=== PATIENT | female | born 1950 | race Caucasian/White ===

== ENCOUNTER 2017-12-25 08:31 | Outpatient (CLI) | payer MEDICARE, BC | END 2017-12-25 08:32 | disposition home or self-care (01) | LOC: BICMAMMO 08:31 | PROVIDERS: ATTEND Obstetrics & Gynecology | DX: R92.8 Other abnormal and inconclusive findings on diagnostic imaging of breast (principal); E87.1 Hypo-osmolality and hyponatremia; R92.1 Mammographic calcification found on diagnostic imaging of breast; Z90.710 Acquired absence of both cervix and uterus | CPT/HCPCS: 77066; G0279 ==

== ENCOUNTER 2022-01-31 17:19 | Inpatient (IN) | payer OTHER, MEDICARE, BC ==
[2022-01-31] MEDS ORDERED: Ondansetron PF 4 MG/2 ML Vial IVP PRN (20:06)
[2022-01-31] MEDS ORDERED: hydrALAZINE 20 MG/ML VIAL SLOW IVP PRN (20:06)
[2022-01-31] MEDS ORDERED: Promethazine HCl 25 MG/ML VIAL IM PRN (20:06)
[2022-01-31] MEDS ORDERED: Lorazepam 2 MG/ML VIAL SLOW IVP PRN (20:06)
[2022-01-31] MEDS ORDERED: traMADol HCl 50 MG TAB PO PRN (20:57)
[2022-01-31] MEDS ORDERED: Gabapentin 300 MG CAP PO SCH (21:00)
[2022-01-31] MEDS ORDERED: Morphine 2 MG/ML VIAL SLOW IVP PRN (21:21)
[2022-01-31] MEDS ORDERED: diphenhydrAMINE 12.5 MG/5 ML UDCUP PO PRN (21:22)
[2022-01-31] MEDS: Cyclobenzaprine 10 MG TAB PO PRN (21:27)
[2022-01-31] MEDS: traMADol HCl 50 MG TAB PO SCH (21:27)
[2022-01-31] MEDS: Senokot S 8.6-50 MG TAB PO SCH (21:30)
[2022-01-31] MEDS: Sodium Chloride 0.9% 1,000 ML IV SCH (21:31)
[2022-02-01] MEDS: traMADol HCl 50 MG TAB PO SCH ×4 (04:20→21:50)
[2022-02-01 05:36] LABS: #Eosinphils 0.2 thou/uL (0.0-0.7); #Lymphocytes 2.2 thou/uL (1.20-3.40); #Monocytes 1.1 thou/uL (0.11-0.59); #Neutrophils 7.1 thou/uL (1.40-6.50); %Basophils 0.3 % (0.0-1.0); %Eosinophils 1.4 % (0.0-10.0); %Lymphocytes 21.1 % (21.0-51.0); %Monocytes 10.2 % (0.0-10.0); Hemoglobin 13.5 g/dL (12.0-16.0); Mean Corpuscular HGB CONC 33.2 g/dL (32.0-36.0); Mean Corpuscular Hemoglobin 32.3 pg (27.0-31.0); Mean Corpuscular Volume 97.3 fL (78.0-98.0); Mean Platelet Volume 8.4 fL (7.4-10.4); Platelet Count 192 thou/uL (130-400); RBC Distribution Width 12.4 % (11.5-14.5); Red Blood Cell (RBC) Count 4.17 mill/uL (4.20-5.40); White Blood Cell (WBC) Count 10.6 thou/uL (4.8-10.8)
[2022-02-01 05:59] LABS: Anion Gap 16 mmol/L (10-20); BUN (Urea Nitrogen) 17 mg/dL (9.8-20.1); Calc. Creatinine Clearance 0 mL/min (70-130); Calcium 8.7 mg/dL (7.8-10.44); Carbon Dioxide 19 mmol/L (23-31); Chloride 104 mmol/L (98-107); Estimated GFR 67; Glucose 163 mg/dL (83-110); Magnesium 2.1 mg/dL (1.6-2.6); Phosphorus 3.8 mg/dL (2.3-4.7); Potassium 4.5 mmol/L (3.5-5.1); Sodium 134 mmol/L (136-145)
[2022-02-01] MEDS: Sodium Chloride 0.9% 1,000 ML IV SCH (06:20)
[2022-02-01 06:40] LABS: SARS-CoV-2 NAA Rapid Test Not Detected (NotDetected)
[2022-02-01] MEDS ORDERED: Morphine 2 MG/ML VIAL SLOW IVP PRN (07:34)
[2022-02-01 07:54] VITALS: BMI 27.7
[2022-02-01 08:03] LABS: Bacteria/HPF None Seen HPF (None Seen); Bilirubin Negative (Negative); Blood, Urine Negative (Negative); Clarity Clear (Clear); Glucose, Urine (Dipstick) Greater than 1000 mg/dL (Negative); Ketone, Urine Negative (Negative); Leukocyte Negative Leu/uL (Negative); Nitrite Negative (Negative); Protein, Urine (Dipstick) Negative (Neg-Trace); RBC/HPF None Seen HPF (0-3); Specific Gravity, Urine 1.028 (1.002-1.036); Squamous Epithelial None Seen HPF (0-3); Urobilinogen Normal mg/dL (Less than 2); WBC/HPF 0-3 HPF (0-3); pH, Urine 6.5 (5.0-9.0)
[2022-02-01 08:15] LABS: Urine Culture Reflex No No
[2022-02-01] MEDS ORDERED: Clopidogrel Bisulfate 75 MG TAB PO SCH (09:00)
[2022-02-01] MEDS ORDERED: Famotidine/PF 20 mg/2ml Vial SLOW IVP SCH (09:00)
[2022-02-01] MEDS ORDERED: Escitalopram Oxalate 20 mg Tablet PO SCH (09:00)
[2022-02-01] MEDS ORDERED: Trospium 20 MG TAB PO SCH (09:00)
[2022-02-01] MEDS: Famotidine 20 MG TAB PO SCH ×2 (09:02→21:50)
[2022-02-01] MEDS: Gabapentin 100 MG CAP PO SCH ×3 (09:07→21:50)
[2022-02-01] MEDS: Acetaminophen 500 MG TAB PO SCH ×3 (09:07→21:50)
[2022-02-01] MEDS: Senokot S 8.6-50 MG TAB PO SCH ×2 (09:10→21:50)
[2022-02-01] MEDS: Polyethylene Glycol 3350 17 GM Packet PO SCH (09:10)
[2022-02-01] MEDS ORDERED: Insulin Regular 300 UNITS/3 ML VIAL SC PRN (11:52)
[2022-02-01] MEDS ORDERED: Dextrose 50% Abboject 50 ML SYRINGE SLOW IVP PRN (11:52)
[2022-02-01] MEDS ORDERED: Dextrose 5% in Water 1,000 ML IV PRN (11:52)
[2022-02-01] MEDS ORDERED: Ibuprofen 200 MG TAB PO SCH (14:00)
[2022-02-01] MEDS: Cyclobenzaprine 10 MG TAB PO PRN (16:15)
[2022-02-01] MEDS: Ketorolac Tromethamine 30 MG/ML VIAL IVP SCH ×2 (16:15→23:10)
[2022-02-01] MEDS: Insulin Regular 300 UNITS/3 ML VIAL SC PRN (17:04)
[2022-02-01] MEDS ORDERED: Atorvastatin Calcium 40 MG TAB PO SCH (21:00)
[2022-02-01] MEDS ORDERED: Amlodipine 5 MG TAB PO SCH (21:00)
[2022-02-02] MEDS: traMADol HCl 50 MG TAB PO SCH ×3 (02:37→14:42)
[2022-02-02] MEDS: Acetaminophen 500 MG TAB PO SCH ×3 (02:39→14:42)
[2022-02-02 05:57] LABS: #Eosinphils 0.3 thou/uL (0.0-0.7); #Lymphocytes 2.4 thou/uL (1.20-3.40); #Monocytes 1.2 thou/uL (0.11-0.59); #Neutrophils 6.2 thou/uL (1.40-6.50); %Basophils 0.3 % (0.0-1.0); %Eosinophils 3.2 % (0.0-10.0); %Lymphocytes 23.4 % (21.0-51.0); %Monocytes 11.7 % (0.0-10.0); %Neutrophils 61.3 % (42.0-75.0); Hemoglobin 12.1 g/dL (12.0-16.0); Mean Corpuscular HGB CONC 33.1 g/dL (32.0-36.0); Mean Corpuscular Hemoglobin 32.2 pg (27.0-31.0); Mean Corpuscular Volume 97.2 fL (78.0-98.0); Mean Platelet Volume 8.4 fL (7.4-10.4); Platelet Count 181 thou/uL (130-400); RBC Distribution Width 12.5 % (11.5-14.5); Red Blood Cell (RBC) Count 3.75 mill/uL (4.20-5.40); White Blood Cell (WBC) Count 10.1 thou/uL (4.8-10.8)
[2022-02-02] MEDS ORDERED: Levothyroxine Sodium 112 MCG TAB PO SCH (06:00)
[2022-02-02 06:24] LABS: Anion Gap 14 mmol/L (10-20); BUN (Urea Nitrogen) 20 mg/dL (9.8-20.1); Calc. Creatinine Clearance 53 mL/min (70-130); Carbon Dioxide 23 mmol/L (23-31); Chloride 104 mmol/L (98-107); Potassium 4.8 mmol/L (3.5-5.1); Sodium 136 mmol/L (136-145)
[2022-02-02 06:25] LABS: Calcium 8.8 mg/dL (7.8-10.44); Estimated GFR 44; Glucose 203 mg/dL (83-110); Magnesium 2.2 mg/dL (1.6-2.6); Phosphorus 3.8 mg/dL (2.3-4.7)
[2022-02-02] MEDS: Ketorolac Tromethamine 30 MG/ML VIAL IVP SCH (06:34)
[2022-02-02] MEDS: Insulin Regular 300 UNITS/3 ML VIAL SC PRN ×2 (06:39→12:09)
[2022-02-02] MEDS ORDERED: Sodium Chloride 0.9% 500 ML IV SCH (07:45)
[2022-02-02] MEDS: Famotidine 20 MG TAB PO SCH (08:18)
[2022-02-02] MEDS: Gabapentin 100 MG CAP PO SCH ×2 (08:19→14:42)
[2022-02-02] MEDS ORDERED: PHOS-NAK 1 PKT PACK PO SCH (08:30)
[2022-02-02] MEDS ORDERED: Clopidogrel Bisulfate 75 MG TAB PO SCH (09:00)
[2022-02-02] MEDS: Polyethylene Glycol 3350 17 GM Packet PO SCH (10:08)
[2022-02-02] MEDS: Senokot S 8.6-50 MG TAB PO SCH (10:08)
[2022-02-02 12:50] VITALS: BP 122/70; TEMP 98
== END 2022-02-02 16:00 | DRG 200 ==
LOC: SURG A 19:53 → OBSVTOIN 02-01 17:10
PROVIDERS: ADMIT Physician Assistant Medical; ATTEND Surgery
DX: S27.0XXA Traumatic pneumothorax, initial encounter (principal); S22.41XA Multiple fractures of ribs, right side, initial encounter for closed fracture; N17.9 Acute kidney failure, unspecified; Z23 Encounter for immunization; Z20.822 Contact with and (suspected) exposure to COVID-19; W01.0XXA Fall on same level from slipping, tripping and stumbling without subsequent striking against object, initial encounter; I25.10 Atherosclerotic heart disease of native coronary artery without angina pectoris; F32.A Depression, unspecified; E03.9 Hypothyroidism, unspecified; E78.5 Hyperlipidemia, unspecified; I10 Essential (primary) hypertension; E11.9 Type 2 diabetes mellitus without complications; Z99.3 Dependence on wheelchair; Z95.1 Presence of aortocoronary bypass graft; Z90.49 Acquired absence of other specified parts of digestive tract; Z88.5 Allergy status to narcotic agent; Z88.6 Allergy status to analgesic agent; Z79.4 Long term (current) use of insulin; Z79.890 Hormone replacement therapy; Z79.899 Other long term (current) drug therapy
CPT/HCPCS: 36415; 36416; 71045; 80048; 81001; 83036; 83735; 83880; 84100; 85025; 90471; 90732; 96374; 96376; G0009; G0378; J1815; J1885; J7030; J7050; U0002

== ENCOUNTER 2023-04-03 08:35 | Outpatient (CLI) | payer MEDICARE, BC | END 2023-04-03 08:36 | disposition home or self-care (01) | LOC: BICMAMMO 08:35 | PROVIDERS: ATTEND Internal Medicine | DX: Z12.31 Encounter for screening mammogram for malignant neoplasm of breast (principal); Z91.89 Other specified personal risk factors, not elsewhere classified | CPT/HCPCS: 77063; 77067 ==

== ENCOUNTER 2023-09-05 09:11 | Outpatient (CLI) | payer MEDICARE, BC | END 2023-09-05 09:12 | disposition home or self-care (01) | LOC: ULT 09:11 | PROVIDERS: ATTEND Internal Medicine | DX: R60.0 Localized edema (principal) | CPT/HCPCS: 93970 ==

== ENCOUNTER 2024-07-22 16:47 | Inpatient (IN) | payer MEDICARE, BC ==
[2024-07-22 18:28] LABS: ALT (SGPT) 35 U/L (Less than 34); AST (SGOT) 63 U/L (11-34); Albumin 4.2 g/dL (3.1-4.5); Alkaline Phosphatase 96 U/L (40-110); Anion Gap 17 mmol/L (10-20); BUN (Urea Nitrogen) 12 mg/dL (9.8-20.1); Bilirubin, Total 1.7 mg/dL (0.3-1.2); Calc. Creatinine Clearance 0 mL/min (70-130); Calcium 8.7 mg/dL (7.8-10.44); Carbon Dioxide 19 mmol/L (23-31); Chloride 93 mmol/L (98-107); Estimated GFR 62; Globulin 3.6 g/dL (2.4-3.5); Glucose 137 mg/dL (83-110); Potassium 3.6 mmol/L (3.5-5.1); Protein, Total 7.8 g/dL (5.8-8.1); Sodium 125 mmol/L (136-145)
[2024-07-22 18:40] LABS: Troponin I 0.777 ng/mL (< 0.028)
[2024-07-22] MEDS ORDERED: Glucagon 1 MG/ML KIT IM PRN (19:59)
[2024-07-22] MEDS ORDERED: Ondansetron PF 4 MG/2 ML Vial IVP PRN (19:59)
[2024-07-22] MEDS ORDERED: Dextrose 5% in Water 1,000 ML IV PRN (19:59)
[2024-07-22] MEDS ORDERED: Ondansetron ODT 4 MG TAB PO PRN (19:59)
[2024-07-22] MEDS ORDERED: Ipratropium/Albuterol 3 ML NEB NEB PRN (19:59)
[2024-07-22] MEDS ORDERED: Acetaminophen 650 MG Suppository PR PRN (19:59)
[2024-07-22] MEDS ORDERED: Dextrose 50% Abboject 50 ML SYRINGE SLOW IVP PRN (19:59)
[2024-07-22 20:42] LABS: Magnesium 1.7 mg/dL (1.6-2.6)
[2024-07-22 21:09] LABS: Anion Gap 19 mmol/L (10-20); BUN (Urea Nitrogen) 13 mg/dL (9.8-20.1); Calc. Creatinine Clearance 0 mL/min (70-130); Calcium 8.6 mg/dL (7.8-10.44); Carbon Dioxide 19 mmol/L (23-31); Chloride 92 mmol/L (98-107); Estimated GFR 60; Glucose 137 mg/dL (83-110); Potassium 3.9 mmol/L (3.5-5.1); Sodium 126 mmol/L (136-145)
[2024-07-22 22:01] LABS: Critical Call Chem Troponin I RESULT DECREASING; Troponin I 0.722 ng/mL (< 0.028)
[2024-07-22 22:07] LABS: Potassium 3.5 mmol/L (3.5-5.1); Sodium 125 mmol/L (136-145)
[2024-07-22 22:31] VITALS: BMI 25.7
[2024-07-22] MEDS: Oseltamivir 75 MG CAP PO SCH (23:52)
[2024-07-23 00:19] LABS: Troponin I 0.673 ng/mL (< 0.028)
[2024-07-23 02:07] LABS: Troponin I 0.799 ng/mL (< 0.028)
[2024-07-23 05:06] LABS: #Basophils Less than 0.03 10x3/uL (0.0-0.2); #Eosinophils Less than 0.03 10x3/uL (0.0-0.7); %Basophils 0.1 % (0.0-1.0); %Lymphocytes 14.6 % (21.0-51.0); %Monocytes 11.6 % (0.0-10.0); %Neutrophils 73.3 % (42.0-75.0); Hematocrit 38.2 % (36.0-47.0); Mean Corpuscular Hemoglobin 30.4 pg (27.0-31.0); Mean Corpuscular Volume 89.3 fL (78.0-98.0); Mean Platelet Volume 10.8 fL (7.4-10.4); Platelet Count 178 10x3/uL (130-400); RBC Distribution Width 14.2 % (11.5-14.5); Red Blood Cell (RBC) Count 4.28 mill/uL (4.20-5.40)
[2024-07-23 05:51] LABS: Anion Gap 15 mmol/L (10-20); BUN (Urea Nitrogen) 13 mg/dL (9.8-20.1); Calc. Creatinine Clearance 62 mL/min (70-130); Calcium 8.4 mg/dL (7.8-10.44); Carbon Dioxide 20 mmol/L (23-31); Chloride 101 mmol/L (98-107); Estimated GFR 62; Glucose 111 mg/dL (83-110); Potassium 3.4 mmol/L (3.5-5.1); Sodium 133 mmol/L (136-145)
[2024-07-23] MEDS: Enoxaparin 40 MG (0.4 mL) SYRINGE SC SCH (08:19)
[2024-07-23] MEDS: Dextrose 5% in Water 1,000 ML IV SCH (08:19)
[2024-07-23] MEDS: Aspirin Chewable 81 MG TAB PO SCH (08:20)
[2024-07-23] MEDS: Desmopressin Acetate 4 mcg/ml AMPUL IVP SCH (08:32)
[2024-07-23 11:19] LABS: Anion Gap 15 mmol/L (10-20); BUN (Urea Nitrogen) 15 mg/dL (9.8-20.1); Calc. Creatinine Clearance 60 mL/min (70-130); Carbon Dioxide 21 mmol/L (23-31); Chloride 99 mmol/L (98-107); Estimated GFR 61; Glucose 237 mg/dL (83-110); Potassium 3.3 mmol/L (3.5-5.1); Sodium 132 mmol/L (136-145)
[2024-07-23] MEDS: Cholestyramine/Aspartame 4 gm Packet PO SCH (11:33)
[2024-07-23] MEDS: Insulin Lispro 100 UNIT/ML 10 ML VIAL SC PRN (11:33)
[2024-07-23] MEDS: Potassium Chloride 20 MEQ TAB PO SCH (13:21)
[2024-07-23 19:08] LABS: Chloride 101 mmol/L (98-107); Potassium 3.4 mmol/L (3.5-5.1); Sodium 128 mmol/L (136-145)
[2024-07-23 19:09] LABS: Calcium 8.3 mg/dL (7.8-10.44); Potassium 3.4 mmol/L (3.5-5.1); Sodium 129 mmol/L (136-145)
[2024-07-23 19:10] LABS: Glucose 239 mg/dL (83-110)
[2024-07-23 19:11] LABS: Anion Gap 13 mmol/L (10-20); Carbon Dioxide 17 mmol/L (23-31)
[2024-07-23 19:13] LABS: Calc. Creatinine Clearance 72 mL/min (70-130); Estimated GFR 76
[2024-07-23 19:14] LABS: BUN (Urea Nitrogen) 17 mg/dL (9.8-20.1)
[2024-07-23] MEDS: Metoprolol Tartrate 25 MG TAB PO SCH (22:53)
[2024-07-23] MEDS: Insulin Glargine 30 UNITS/0.3 ML VIAL SC SCH (22:53)
[2024-07-23] MEDS: Clopidogrel Bisulfate 75 MG TAB PO SCH (22:53)
[2024-07-23] MEDS: Atorvastatin Calcium 40 MG TAB PO SCH (22:53)
[2024-07-23] MEDS: Ranolazine ER 500 MG TAB PO SCH (22:54)
[2024-07-23] MEDS: Amlodipine 5 MG TAB PO SCH (22:54)
[2024-07-23] MEDS: Mirtazapine 15 MG TAB PO SCH (22:54)
[2024-07-23] MEDS: Trospium 20 MG TAB PO SCH (22:55)
[2024-07-24 05:40] LABS: Chloride 102 mmol/L (98-107); Potassium 3.6 mmol/L (3.5-5.1); Sodium 131 mmol/L (136-145)
[2024-07-24 05:41] LABS: Calcium 8.1 mg/dL (7.8-10.44); Glucose 166 mg/dL (83-110)
[2024-07-24 05:43] LABS: Anion Gap 14 mmol/L (10-20); Carbon Dioxide 19 mmol/L (23-31)
[2024-07-24 05:45] LABS: Calc. Creatinine Clearance 76 mL/min (70-130); Estimated GFR 81
[2024-07-24 05:46] LABS: BUN (Urea Nitrogen) 17 mg/dL (9.8-20.1)
[2024-07-24] MEDS: Levothyroxine Sodium 112 MCG TAB PO SCH (06:18)
[2024-07-24 06:34] LABS: #Basophils Less than 0.03 10x3/uL (0.0-0.2); #Eosinophils Less than 0.03 10x3/uL (0.0-0.7); %Basophils 0.2 % (0.0-1.0); %Lymphocytes 17.3 % (21.0-51.0); %Monocytes 14.3 % (0.0-10.0); %Neutrophils 67.7 % (42.0-75.0); Hematocrit 38.6 % (36.0-47.0); Hemoglobin 12.6 g/dL (12.0-16.0); Mean Corpuscular HGB CONC 32.6 g/dL (32.0-36.0); Mean Corpuscular Hemoglobin 29.6 pg (27.0-31.0); Mean Corpuscular Volume 90.8 fL (78.0-98.0); Mean Platelet Volume 11.2 fL (7.4-10.4); Platelet Count 148 10x3/uL (130-400); RBC Distribution Width 14.5 % (11.5-14.5); Red Blood Cell (RBC) Count 4.25 mill/uL (4.20-5.40)
[2024-07-24] MEDS: Heparin 25,000 units/D5W 500 ML IVPB SCH (08:19)
[2024-07-24] MEDS: Heparin 10,000 UNITS/ 10 ML VIAL SLOW IVP SCH (08:25)
[2024-07-24] MEDS: Aripiprazole 10 MG TAB PO SCH (09:40)
[2024-07-24] MEDS: Empagliflozin 25 MG TAB PO SCH (09:40)
[2024-07-24] MEDS ORDERED: NS 0.9% w/ 20 MEQ KCL 1,000 ML/1,000 ML BAG IV SCH (13:00)
[2024-07-24 17:24] LABS: Critical Call Chem Troponin I RESULT DECREASING; Troponin I 9.073 ng/mL (< 0.028)
[2024-07-24] MEDS: Metoprolol Tartrate 25 MG TAB PO SCH (22:25)
[2024-07-25 04:20] LABS: #Basophils Less than 0.03 10x3/uL (0.0-0.2); #Eosinophils Less than 0.03 10x3/uL (0.0-0.7); %Basophils 0.2 % (0.0-1.0); %Lymphocytes 20.2 % (21.0-51.0); %Monocytes 13.5 % (0.0-10.0); %Neutrophils 65.7 % (42.0-75.0); Hematocrit 37.4 % (36.0-47.0); Hemoglobin 12.1 g/dL (12.0-16.0); Mean Corpuscular HGB CONC 32.4 g/dL (32.0-36.0); Mean Corpuscular Hemoglobin 29.2 pg (27.0-31.0); Mean Corpuscular Volume 90.1 fL (78.0-98.0); Mean Platelet Volume 11.2 fL (7.4-10.4); Platelet Count 145 10x3/uL (130-400); RBC Distribution Width 14.3 % (11.5-14.5); Red Blood Cell (RBC) Count 4.15 mill/uL (4.20-5.40)
[2024-07-25 05:49] LABS: Anion Gap 13 mmol/L (10-20); BUN (Urea Nitrogen) 16 mg/dL (9.8-20.1); Calc. Creatinine Clearance 74 mL/min (70-130); Calcium 8.2 mg/dL (7.8-10.44); Carbon Dioxide 19 mmol/L (23-31); Chloride 100 mmol/L (98-107); Estimated GFR 78; Glucose 113 mg/dL (83-110); Potassium 3.7 mmol/L (3.5-5.1); Sodium 128 mmol/L (136-145)
[2024-07-25] MEDS: Furosemide 20 MG (2 mL) VIAL SLOW IVP SCH (08:47)
[2024-07-25 20:06] LABS: Potassium 3.7 mmol/L (3.5-5.1); Sodium 134 mmol/L (136-145)
[2024-07-25] MEDS: Insulin Lispro 100 UNIT/ML 10 ML VIAL SC PRN (20:25)
[2024-07-25] MEDS: Senokot S 8.6-50 MG TAB PO PRN (20:37)
[2024-07-26 05:01] LABS: #Basophils Less than 0.03 10x3/uL (0.0-0.2); #Eosinophils Less than 0.03 10x3/uL (0.0-0.7); %Basophils 0.3 % (0.0-1.0); %Eosinophils 0.2 % (0.0-10.0); %Lymphocytes 27.8 % (21.0-51.0); %Neutrophils 60.2 % (42.0-75.0); Hematocrit 40.1 % (36.0-47.0); Hemoglobin 12.9 g/dL (12.0-16.0); Mean Corpuscular HGB CONC 32.2 g/dL (32.0-36.0); Mean Corpuscular Hemoglobin 29.3 pg (27.0-31.0); Mean Corpuscular Volume 90.9 fL (78.0-98.0); Mean Platelet Volume 11.3 fL (7.4-10.4); Platelet Count 163 10x3/uL (130-400); RBC Distribution Width 14.2 % (11.5-14.5); Red Blood Cell (RBC) Count 4.41 mill/uL (4.20-5.40)
[2024-07-26 05:30] LABS: Anion Gap 15 mmol/L (10-20); BUN (Urea Nitrogen) 15 mg/dL (9.8-20.1); Calc. Creatinine Clearance 85 mL/min (70-130); Calcium 8.2 mg/dL (7.8-10.44); Carbon Dioxide 19 mmol/L (23-31); Chloride 106 mmol/L (98-107); Estimated GFR 91; Glucose 136 mg/dL (83-110); Potassium 3.5 mmol/L (3.5-5.1); Sodium 136 mmol/L (136-145)
[2024-07-26] MEDS: Temazepam 15 MG CAP PO PRN (20:04)
[2024-07-27 05:53] LABS: #Basophils Less than 0.03 10x3/uL (0.0-0.2); %Basophils 0.3 % (0.0-1.0); %Eosinophils 1.4 % (0.0-10.0); %Neutrophils 54.8 % (42.0-75.0); Hematocrit 38.6 % (36.0-47.0); Hemoglobin 12.4 g/dL (12.0-16.0); Mean Corpuscular HGB CONC 32.1 g/dL (32.0-36.0); Mean Corpuscular Hemoglobin 29.1 pg (27.0-31.0); Mean Corpuscular Volume 90.6 fL (78.0-98.0); Mean Platelet Volume 10.4 fL (7.4-10.4); Platelet Count 193 10x3/uL (130-400); RBC Distribution Width 14.1 % (11.5-14.5); Red Blood Cell (RBC) Count 4.26 mill/uL (4.20-5.40)
[2024-07-27] MEDS: Acetaminophen 325 MG TAB PO PRN (17:00)
[2024-07-27 17:11] VITALS: BP 142/72; TEMP 98.1
== END 2024-07-27 17:20 | disposition swing bed (61) | DRG 280 ==
LOC: ERS 16:47 → OBSVTOIN 20:28 → 2NO 20:28
PROVIDERS: ADMIT Hospitalist; ATTEND Family Medicine
DX: I11.0 Hypertensive heart disease with heart failure (principal); G93.41 Metabolic encephalopathy; I21.A1 Myocardial infarction type 2; I50.33 Acute on chronic diastolic (congestive) heart failure; E87.1 Hypo-osmolality and hyponatremia; I50.9 Heart failure, unspecified; E03.9 Hypothyroidism, unspecified; I25.10 Atherosclerotic heart disease of native coronary artery without angina pectoris; Z66 Do not resuscitate; E11.9 Type 2 diabetes mellitus without complications; F41.9 Anxiety disorder, unspecified; J10.1 Influenza due to other identified influenza virus with other respiratory manifestations; K52.9 Noninfective gastroenteritis and colitis, unspecified; F32.A Depression, unspecified; Z88.8 Allergy status to other drugs, medicaments and biological substances; Z95.1 Presence of aortocoronary bypass graft; Z90.49 Acquired absence of other specified parts of digestive tract; Z90.710 Acquired absence of both cervix and uterus; Z98.890 Other specified postprocedural states
CPT/HCPCS: 36415; 36416; 80048; 83735; 83930; 83935; 84300; 84439; 84484; 85025; 85730; 93306; 99285; J1644; J1650; J1815; J1940; J2597; J7070